=== PATIENT | male | born 1970 | race African-American/Black ===

== ENCOUNTER 2017-09-06 10:35 | Inpatient (IN) | payer OTHER ==
--- NOTE | 2017-09-06 11:30 | RAD ---
PORTABLE CHEST 1 VIEW: Date: 09/06/17 Time: 1052 hours HISTORY: Dyspnea. Lymphoma. FINDINGS: The heart size is normal. There is a right-sided Port-A-Cath with tip in the projection of the SVC. N o lobar consolidation, pneumothoraces, or pleural effusions are seen. There is fullness in the left h ilar region, likely due to lymphadenopathy. The right hemidiaphragm is elevated. IMPRESSION: No acute process. POS: OFF
[2017-09-06 11:40] LABS: INR-International Normal Ratio 1.3; Prothrombin Time 16.6 SEC (12.0-14.7)
[2017-09-06 11:41] LABS: PTT 60.8 SEC (22.9-36.1)
[2017-09-06 11:59] LABS: ALT (SGPT) 54 U/L (8-55); AST (SGOT) 449 U/L (5-34); Albumin 2.1 g/dL (3.5-5.0); Alkaline Phosphatase 669 U/L (40-150); Anion Gap 20 mmol/L (10-20); BUN (Urea Nitrogen) 73 mg/dL (8.9-20.6); Bilirubin, Total 2.5 mg/dL (0.2-1.2); Calc. Creatinine Clearance 0 mL/min (70-130); Calcium 7.4 mg/dL (7.8-10.44); Carbon Dioxide 14 mmol/L (22-29); Chloride 110 mmol/L (98-107); Estimated GFR-MDRD 34; Globulin 4.1 g/dL (2.4-3.5); Glucose 62 mg/dL (70-105); Potassium 4.9 mmol/L (3.5-5.1); Protein, Total 6.2 g/dL (6.0-8.3); Sodium 139 mmol/L (136-145)
[2017-09-06 12:01] LABS: Hemoglobin 8.9 g/dL (14.0-18.0); Mean Corpuscular Hemoglobin 25.1 pg (27.0-31.0); Mean Corpuscular Volume 83.4 fl (80.0-94.0); Mean Platelet Volume 15.1 fL (7.4-10.4); Platelet Count 26 thou/uL (130-400); RBC Distribution Width 16.7 % (11.5-14.5); Red Blood Cell (RBC) Count 3.56 mill/uL (4.70-6.10); Reflex for Review?? NO; White Blood Cell (WBC) Count 0.1 thou/uL (4.8-10.8)
[2017-09-06 12:04] LABS: Schistocytes SLIGHT = 2-5 cells (100X) (0-1/hpf); Target Cells MARKED = >16 cells (100X) (0-1/hpf)
[2017-09-06 12:05] LABS: PLT Morphology Comment Appears Decreased
--- NOTE | 2017-09-06 12:31 | CT ---
CT PULMONARY ANGIO CHEST WITH CONTRAST: Multiple axial tomograms obtained through the chest following an angio protocol with multiplanar sandra nstruction and 3D post processing. HISTORY: Dyspnea. Hypotension. Recent diagnosis of lymphoma with liver mets. COMPARISON: No comparison study. FINDINGS: Suboptimal opacification of the pulmonary arteries; however, no evidence of pulmonary embolus seen to the segmental level. Thoracic aorta is opacified and there is no evidence of aortic dissection. There is a soft tissue mass in the anterior mid left chest which is located medially along the medias tinum. It abuts the main pulmonary artery anteriorly. It measures 4.4 cm AP dimension and is consis tent with neoplasm. The lungs are otherwise clear. No infiltrate or effusion identified. Images through the upper abdomen reveal an enlarged liver with numerous low-density lesions throughou t the liver consistent with diffuse hepatic metastatic disease. Bony thorax appears unremarkable. IMPRESSION: 1. No evidence of pulmonary embolus. 2. A 4.4 cm mass in the anteromedial left lung abutting the anterior pleural surface and abutting th e mediastinum anteriorly. 3. Hepatomegaly with diffuse low-density lesion throughout the liver consistent with diffuse metasta sis. POS: [facility]
[2017-09-06] MEDS ORDERED: Piperacillin/Tazobactam 3.375 GM in Sodium Chloride 0.9% 100 ML IVPB ONE (12:45)
[2017-09-06 14:05] VITALS: BMI 26.1
[2017-09-06] MEDS ORDERED: Sodium Chloride 0.9% 1,000 ML IV SCH (14:45)
[2017-09-06] MEDS ORDERED: Ondansetron HCl/PF 4 MG/2 ML Vial IVP PRN (14:54)
[2017-09-06] MEDS ORDERED: Ondansetron ODT 4 MG TAB PO PRN (14:54)
[2017-09-06] MEDS ORDERED: Prevnar 13-Val Conj/PF 0.5 ML SYRINGE IM ONE (15:00)
[2017-09-06] MEDS: Sodium Chloride 0.9% 1,000 ML IV SCH ×2 (15:44→22:05)
[2017-09-06 15:59] LABS: Lactic Acid 5.3 mmol/L (0.5-2.2)
[2017-09-06] MEDS ORDERED: ISOVUE-370 76%-LOCM 1 ML ONE (16:05)
[2017-09-06] MEDS: Cefepime 2 GM, Syringe 2.5 ML in Sterile Water 10 ML SLOW IVP SCH (16:35)
[2017-09-06] MEDS ORDERED: Ketorolac Tromethamine 30 MG/ML VIAL IVP SCH (17:45)
--- NOTE | 2017-09-06 17:53 | HP ---
DATE OF ADMISSION: 09/06/2017 TIME OF SERVICE: 14:00. CHIEF COMPLAINT: Hypertension. HISTORY OF PRESENT ILLNESS: Mr. Tierney is a 47-year-old male who is an [facility] [place] who was sent to initially [facility] for evaluation of l ow blood pressure. The patient has a history of what he says was a lymphoma with a mass adjacent to the heart and massively enlarged liver and spleen with metastasis who underwent his first round of ch emotherapy at [facility] about 2 weeks ago. He has had decreased intake and increased belly swelling. He has had early satiety. He has had subj ective fevers or chills. No diarrhea. Still passing gas. He has had decreased p.o. intake and really does take fluids due to fullness in the belly. He was taken to the outside Emergency Department and was found to have systolic blood pressure in the 70s. He was initially given IV fluids starting Levophed and resuscitated with some saline. He subs equently called [facility] to accept him as transfer. He had no beds available, so he was sent from [facility] to [place]. Upon arrival here, he has remained in the systolic 80s and 90s. He has had a total of 4 liters in [facility] emergency department and is being admitted to the hospital for further workup. The patient does have a history of hypertension, hyperlipidemia, and GERD. He is on multiple blood p ressure medicines include amlodipine, metoprolol, and hydrochlorothiazide which has been continued to take despite decreased p.o. intake. Workup in the outside ER and confirmed here showed him to have acute kidney injury with a BUN of 73, creatinine 2, he had a metabolic acidosis with bicarbonate of 14, he has had increased liver function as expected. He has got pancytopenia secondary to his chemo. Lactic acid level here was 6.4. The patient was seen and examined on arrival to the ICU setting, he complained of abdominal pain. No nausea or vomiting, but does not have any appetite. He admitted to fevers and occasional chills, bu t no rigors. No diarrhea, constipation, no GI bleeding. PAST MEDICAL HISTORY: 1. Hypertension, essential. 2. Hyperlipidemia. 3. GERD. 4. Chronic abdominal pain secondary to cancer. 5. Lymphoma with multiple mets to the liver. 6. Anxiety. PAST SURGICAL HISTORY: Includes Port-A-Cath placement to the right chest. HOME MEDICATIONS: 1. Amlodipine 10 mg daily. 2. Bisacodyl 5 mg p.o. p.r.n. constipation. 3. Clonazepam 0.5 mg p.o. daily. 4. HCTZ 25 mg daily. 5. Ibuprofen 400 mg q.6 hours p.r.n. 6. Metoprolol 50 mg p.o. b.i.d. 7. MS Contin 30 mg p.o. b.i.d. 8. Omeprazole 20 mg daily. 9. 25 mg p.o. b.i.d. ALLERGIES: INHIBITOR causes lip and throat swelling. FAMILY HISTORY: Negative for clotting or bleeding disorder. No immune dysfunction. Hypertension, d iabetes, and heart problems runs in the family. SOCIAL HISTORY: Negative habits x3. Does have history of smoking crack cocaine in the past. He is currently incarcerated [facility] the [facility] in [place]. He is not asking why. REVIEW OF SYSTEMS: A 10-point review of systems was performed, negative for all systems except as st ated per HPI. PHYSICAL EXAMINATION: VITAL SIGNS: Temperature current is 98.6, pulse 102, blood pressure is 102/71, respiratory rate 22, satting 96% on 2 liters nasal cannula. GENERAL: He is awake. He is alert. He is oriented x3. He is cachectic looking with a full abdomen . He appears to be in no acute distress, but looks like he does appear well. HEENT: Normocephalic, atraumatic. Pupils are equal, round, reactive bilaterally. Mucous membranes are moist. No visible lesions. No thrush. NECK: Supple. He has no lymphadenopathy, no JVD, no thyromegaly. Carotids upstroke without bruits. LUNGS: Clear to auscultation bilaterally. No wheezes, no rales or rhonchi. CARDIOVASCULAR: Tachycardic, irregular. Normal S1 and S2. There are no appreciated murmurs. ABDOMEN: Distended and tense. It is diffusely tender mildly. There is no rebound, rigidity, or gua rding. He has got distant hypoactive bowel sounds in all 4 quadrants. There was no shifting dullnes s. EXTREMITIES: No cyanosis or clubbing. Trace pedal edema. He has had a 2+ dorsalis pedis and analog design engineer ior tibial pulses. SKIN: Warm, moist and well well-perfused. He has no other rash or lesions. He is nonjaundiced. He has very mild icterus. NEUROLOGIC: Cranial nerves II-XII grossly intact. No focal deficits. 4/5 strength in all 4 extremi ties. He has got normal speech pattern. MUSCULOSKELETAL: Normal to inspection. Large joints are normal to inspection. No inflammation and no palpable effusions. LABORATORY DATA: Here sodium 139, potassium 4.9, chloride 110, bicarbonate 14, BUN 73, creatinine 2. 06, and glucose 62. Calcium was 7.4. Liver function, alkaline phosphatase 69, AST of 400, ALT of 54 , total bilirubin 2.5, total protein 6.2 and albumin 2.1. CBC showed white count of 0.1, differentia l not possible. Hemoglobin is 8.9, hematocrit 29.7, platelet count 26,000. Lactic acid was 6.4. PT was 16.6, INR 1.3. RADIOGRAPHIC STUDIES: Chest x-ray showed no acute cardiopulmonary disease. We got CT angiogram, [facility] showed no evidence of pulmonary embolism, 4.4 cm anteromedial mass adjacent to the lung and heart. He has a massively enlarged liver and spleen, liver is chock full of multiple metastatic lesions. ASSESSMENT AND PLAN: 1. Hypertension: The patient is persistently hypotensive. I do believe he is both dehydrated and h as an additive effect of medications with decreased excretion from his acute kidney injury. I will h old all of his blood pressure medicines. He has finished his fourth liter of IV fluids here, we will start him on 200 mL per hour normal saline. Watch his creatinine very closely. 2. Acute kidney injury; multifactorial. The patient has been taking ibuprofen for his abdominal gerson n, has been taking amlodipine, hydrochlorothiazide and metoprolol despite severely decreased p.o. int loulou. I think he is dehydrated from lack of p.o. intake and iatrogenic use of his diuretics. We will hold his medicines and rehydrate, should turn around fairly quickly. 3. Lymphoma, metastatic. The patient is on the chemotherapy at [facility]. The last dose was arou nd 2 weeks ago. 4. Neutropenia: The patient has a white count of 0.1 with an absolute neutrophil count less than 50 0. He has no overt signs of infection. No fevers here, but has complained of fever symptoms. We wi ll start him on cefepime 2 grams q.24 for his potential neutropenic fever and will monitor his temper ature very closely. 5. Abdominal pain: Continue home medications and IV medicines as needed.
[2017-09-06] MEDS ORDERED: Piperacillin/Tazobactam 3.375 GM in Sodium Chloride 0.9% 100 ML IVPB SCH (18:00)
[2017-09-06] MEDS: Pantoprazole 40 MG VIAL IVP SCH (20:36)
[2017-09-06] MEDS ORDERED: Morphine ER 15 MG TAB PO SCH (21:00)
[2017-09-06] MEDS ORDERED: Cefepime 2 GM in Sodium Chloride 0.9% 100 ML IVPB SCH (21:00)
[2017-09-07 00:41] LABS: Actual Bicarbonate (HCO3a) 8.9 mEq/L (22-26); Base Excess (BEa) -19.4 mEq/L (0 (+/-) 2.5); CO2 Tension 30.5 mmHg (35.0-45.0); Hematocrit-ABG 27.4 % (42.0-52.0); Hemoglobin (Hb) 8.2 g/dL (14.0-18.0); pH, Arterial 7.09 (7.35-7.45)
[2017-09-07 00:42] LABS: ALV-art Gradient 540.875 (0-20); Calcium, Ionized 0.9 mmol/L (1.12-1.30); Puncture Site RRA
[2017-09-07] MEDS ORDERED: Sodium Bicarb 50 MEQ/50 ML Abboject 8.4% SYRINGE IVP SCH ×2 (01:00→02:00)
[2017-09-07] MEDS ORDERED: Sedation Protocol FS SCH (01:24)
[2017-09-07] MEDS ORDERED: Propofol 1,000 MG/100 ML VIAL IV PRN (01:27)
[2017-09-07] MEDS ORDERED: Lorazepam 2 MG/ML VIAL SLOW IVP PRN (01:27)
[2017-09-07] MEDS ORDERED: Morphine 2 MG/ML SYRINGE SLOW IVP PRN (01:27)
[2017-09-07] MEDS ORDERED: DISCONTINUE PREVIOUS NARCOTIC PAIN MEDICATIONS AND BENZODIAZEPINES FS SCH (01:27)
[2017-09-07] MEDS ORDERED: Dextrose 5% in Water 1,000 ML IV SCH (01:30)
[2017-09-07] MEDS ORDERED: Sodium Bicarbonate 150 MEQ in Dextrose 5% in Water 1,000 ML IV SCH ×2 (01:30)
--- NOTE | 2017-09-07 01:48 | PDOC.EVN ---
Event Note - Event Note Event Note: LUCINDA ALBERTS EVENT NOTE: 0008 immediately presented to bedside. Pt found to be in asystole, compressions were in progress. 1 round of epi was given and ROSC was obtained 5 minutes in. Pt subsequently A&O x4, but persistent respiratory distress. ABG obtained after code showed severe metabolic acidosis pH 7.09, pCO2 of 30 and Bicarb of 8.9. BP decreased to 70s systolic with MAP of 50s, levophed subsequently started and when MAP > 65 was obtained RSI was performed secondary to pending respiratory failure. RSI Procedure: Indication: Respiratory failure Procedure Money Room Teller: Theo Ayala DO Assisting Money Room Teller: Sheyla Vasques MD Attending Physician: Blanca James MD in attendance Consent: Consent was obtained from the pt prior to procedure. PROCEDURE SUMMARY: I wore a surgical mask and gloves throughout the procedure. The pt was placed on continuous cardiac monitoring including continuous pulse oximetry. The pt was pre-oxygenated with BVM with and pre-intubation oxygen saturation of 98% was obtained. Rapid sequence intubation was conducted. The patient received 25mg etomidate for induction and 80mg succinylcholine for adequate paralysis. Cricoid pressure was maintained from time induction agent was given to time of cuff balloon inflation. Using a glidescope and a size 7.5 endotracheal tube with stylet the patient was intubated on the first attempt. The stylet was removed and the cuff balloon was inflated. Appropriate endotracheal tube position was confirmed by direct visualization of the vocal cord passage, fogging of the tube, CO2 colometric indicator and symmetric breath sounds. The tube was secured at 28 cm at the lips. Post intubation x-ray showed slight intubation of rt main stem bronchus and tube was withdrawn 2 cm to 26 cm at the lips. Confirmation x-ray is pending at this time. <Theo Ayala - Last Filed: 09/07/17 01:27> - Event Note Event Note: I arrived with the residents with chest compressions in progress. Pt had received 1 dose of epinephrine in addition to the chest compressons and was found at the pulse check to have pulse with ROSC. Rescue breathing continued and pt quickly recovered and was A&O x4 but with tachypnea and SOB. Accucheck was 43 received 1 amp D50 and ABG was obtained which showed severe metabolic acidosis. Pt was also noted to be hypotensive and levophed was started. After improvement in BP, pt was medicated and intubated on first attempt. Tube placement was confirmed. CXR showed tube at alena and slightly into right main stem. Tube withdrawn 2 cm. and resecured. <Blanca James - Last Filed: 09/07/17 11:27>
[2017-09-07 01:50] LABS: CO2 Tension 27.6 mmHg (35.0-45.0); O2 Tension (PaO2) 153.5 mmHg (80.0-100.0); pH, Arterial 7.17 (7.35-7.45)
[2017-09-07 01:51] LABS: Actual Bicarbonate (HCO3a) 9.8 mEq/L (22-26); Base Excess (BEa) -17.2 mEq/L (0 (+/-) 2.5); Calcium, Ionized 0.9 mmol/L (1.12-1.30); Hematocrit-ABG 25.9 % (42.0-52.0); Hemoglobin (Hb) 7.9 g/dL (14.0-18.0); Puncture Site LBR
[2017-09-07] MEDS: fentaNYL Citrate/PF 2,000 MCG in Sodium Chloride 0.9% 60 ML IV SCH ×2 (01:55→14:43)
[2017-09-07] MEDS: Sodium Bicarbonate 150 MEQ in Dextrose 5% in Water 1,000 ML IV SCH ×8 (02:01→20:08)
[2017-09-07] MEDS: Norepinephrine 8 MG in Sodium Chloride 0.9% 250 ML 250 ML IVPB PRN ×5 (02:03→20:06)
[2017-09-07] MEDS: Sodium Chloride 0.9% 1,000 ML IV SCH (02:04)
--- NOTE | 2017-09-07 02:29 | PDOC.EVN ---
Event Note - Event Note Event Note: Pt seen earlier during Code Blue and reassessed later. Currently on ventilator , not responding. PRN Levophed drip for hypotension.
--- NOTE | 2017-09-07 03:33 | PRG ---
DATE OF SERVICE: 09/07/2017 SUBJECTIVE: Mr. Tierney continues to have a metabolic acidosis. His pH is 7.17 after he was intubated and hyperventilated. He has significant hypoxemia, which would normally be concerned for pulmonary e mboli given his unremarkable radiograph and lung gutierrez on chest CT, but CT angiogram ruled out pulmo nary embolus earlier. He has been started on a bicarbonate drip and was given 2 more amps of bicarbonate. Prognosis is jude te guarded and after reviewing his CT and how much tumor burden there probably is in his liver, I jason lly do not see how how he can survive this. Critical care time was 1 hour and 15 minutes.
[2017-09-07] MEDS: Cefepime 2 GM, Syringe 2.5 ML in Sterile Water 10 ML SLOW IVP SCH ×2 (04:07→16:30)
[2017-09-07 05:30] LABS: ALT (SGPT) 55 U/L (8-55); AST (SGOT) 509 U/L (5-34); Albumin 1.8 g/dL (3.5-5.0); Alkaline Phosphatase 532 U/L (40-150); Anion Gap 23 mmol/L (10-20); BUN (Urea Nitrogen) 77 mg/dL (8.9-20.6); Bilirubin, Total 2.9 mg/dL (0.2-1.2); Calc. Creatinine Clearance 44 mL/min (70-130); Calcium 6.2 mg/dL (7.8-10.44); Carbon Dioxide 14 mmol/L (22-29); Chloride 110 mmol/L (98-107); Estimated GFR-MDRD 36; Globulin 3.5 g/dL (2.4-3.5); Glucose 107 mg/dL (70-105); Magnesium 1.9 mg/dL (1.6-2.6); Potassium 4.8 mmol/L (3.5-5.1); Protein, Total 5.3 g/dL (6.0-8.3); Sodium 142 mmol/L (136-145)
[2017-09-07 05:49] LABS: White Blood Cell (WBC) Count 0.9 thou/uL (4.8-10.8)
--- NOTE | 2017-09-07 05:50 | CON ---
DATE OF CONSULTATION: 09/07/2017 Mr. Tierney is a 47-year-old male. He was transferred here from [place] for hypotension. Apparently, he received chemotherapy for a lymphoma recently at [facility]. They had no beds. I was consulted at 12:35 for a code that occurred in the ICU. I was asked whether or not the patient needed to be intubated after developing pulseless electrical activity. When I arrived, the residents were intubating Mr. Tierney. PAST MEDICAL HISTORY: Obtained from the admitting notes. He reportedly has a history of hypertension, lymphoma with liver involvement, reflux disease, lipid disorder, hypertension, and MediPort placement. MEDICATIONS: He has been on amlodipine, clonazepam, hydrochlorothiazide, ibuprofen, metoprolol, MS Contin, omeprazole. ALLERGIES: He has a history of SERENITY INHIBITOR intolerance. FAMILY HISTORY: history of hypertension, diabetes in the family. SOCIAL HISTORY: He is a nonsmoker, nondrinker. REVIEW OF SYSTEMS: Unobtainable. PHYSICAL EXAMINATION: VITAL SIGNS: His blood pressure is in the 90s, is in sinus rhythm with a rate of 120, respiratory rate is now 30 per mechanical ventilation. HEENT: Sclerae are anicteric. NECK: Supple. LUNGS: Remarkable for equal breath sounds. HEART: Regular rhythm. He has no rub. ABDOMEN: Significantly distended. EXTREMITIES: Without clubbing, cyanosis, or edema. LABORATORY AND X-RAY FINDINGS: Sodium 139, potassium 4.9, chloride 110, bicarbonate 14 at 11:24 this morning, BUN 73, creatinine 2.06. Bilirubin is 2.5 , AST is 449, ALT 54, alkaline phosphatase 669, albumin is 2.1. White count 100 , hemoglobin 8.9, platelets 26,000. Post-code blood gas shows pH 7.09, CO2 of 30, pO2 of 134. This was before intubation. CT of his chest has been reviewed by me. He has a mass adjacent to his heart. I do not see a large pericardial effusion. He has a massive liver with an apparent suggestive of diffuse metastatic disease. IMPRESSION: 1. Neutropenic sepsis. 2. Metastatic lymphoma with extensive liver involvement. I suppose some of his metabolic acidosis could be secondary to hepatic necrosis as a result of his chemo. His prognosis is dismal. Blood gas will be done in 15-20 minutes. Critical care time 1 hr 15 min. [facility]
[2017-09-07 05:54] LABS: Hemoglobin 7.9 g/dL (14.0-18.0); Mean Corpuscular HGB CONC 30.7 g/dL (32.0-36.0); Mean Corpuscular Hemoglobin 24.7 pg (27.0-31.0); Mean Corpuscular Volume 80.5 fl (80.0-94.0); Mean Platelet Volume 16.1 fL (7.4-10.4); Platelet Count 15 thou/uL (130-400); RBC Distribution Width 16.9 % (11.5-14.5); Red Blood Cell (RBC) Count 3.21 mill/uL (4.70-6.10)
[2017-09-07 06:08] LABS: Anisocytosis SLIGHT = 6-15 cells (100X) (0-5/hpf); Lymphocytes 100 % (21-51); MDiff Complete? YES; PLT Morphology Comment Appears Decreased; Target Cells MODERATE= 6-15 cells (100X) (0-1/hpf)
--- NOTE | 2017-09-07 08:01 | RAD ---
PORTABLE CHEST SUPINE CHEST: History: Intubation. Code blue. FINDINGS/IMPRESSION: ET tube has been placed. The tip projects into the right mainstem bronchus and should be retracted. A Mediport catheter is unchanged. An NG tube has been placed and tip overlies the left abdomen. There is patchy atelectasis and/or infiltrate in the right lung base. POS: [facility]
[2017-09-07] MEDS: Pantoprazole 40 MG VIAL IVP SCH ×2 (08:13→20:25)
[2017-09-07] MEDS ORDERED: Sodium Chloride 0.9% 1,000 ML IV SCH (08:15)
[2017-09-07] MEDS ORDERED: Albumin 25% 25 GM/100 ML BOT IVPB SCH ×2 (08:15→16:00)
[2017-09-07 08:16] LABS: pH, Arterial 7.33 (7.35-7.45)
[2017-09-07 08:17] LABS: Actual Bicarbonate (HCO3a) 11.6 mEq/L (22-26); Base Excess (BEa) -12.8 mEq/L (0 (+/-) 2.5); CO2 Tension 22.3 mmHg (35.0-45.0); Calcium, Ionized 0.8 mmol/L (1.12-1.30); Hematocrit-ABG 27.8 % (42.0-52.0); O2 Tension (PaO2) 99.5 mmHg (80.0-100.0)
[2017-09-07 08:18] LABS: ALV-art Gradient 297.425 (0-20); Puncture Site RR
[2017-09-07] MEDS: Vasopressin 40 UNIT, Admixture Fee 1 EACH in Sodium Chloride 0.9% 100 ML IV SCH ×2 (09:08→23:41)
[2017-09-07] MEDS ORDERED: Succinylcholine Chloride 200 MG/10 ML VIAL ONE (13:03)
[2017-09-07] MEDS ORDERED: Dextrose 50% Abboject 50 ML SYRINGE ONE (13:11)
[2017-09-07] MEDS ORDERED: Sodium Bicarb 50 MEQ/50 ML Abboject 8.4% SYRINGE ONE (13:11)
[2017-09-07] MEDS ORDERED: EPINEPHrine 1 MG/10 ML Abboject SYRINGE ONE (13:11)
[2017-09-07] MEDS ORDERED: Atropine Sulfate 1 mg/10 ml Syringe ONE (13:11)
--- NOTE | 2017-09-07 17:21 | OP ---
09/07/2017 PROCEDURE: Central line placement. ARM REST BUILDER: Dr. David Syed. INDICATION: Poor peripheral access. Right groin was prepped with Betadine. Femoral vein was easily cannulated, first passed with an introducer needle. Wire was passed followed by a vein dilator after a small incision was made. Triple lumen catheter was sewn in place x2. Good blood return was obtained from all 3 ports. Sterile dressing was applied. [facility]
--- NOTE | 2017-09-07 17:55 | PRG ---
DATE OF SERVICE: 09/07/2017 SUBJECTIVE: Mr. Tierney is still on pressors. His acid base status is improving. PHYSICAL EXAMINATION: VITAL SIGNS: Blood pressures just recently over 100, most part he has been in the 90s, heart rate in 106, is in sinus rhythm, respiratory rate is 30. LUNGS: Remarkable for equal breath sounds. HEART: Regular rhythm. S1 and S2 are normal. ABDOMEN: Soft and nontender. EXTREMITIES: Without asymmetry. LABORATORY DATA: Blood cultures are growing, one culture is growing gram negative and the other cult ure is E. coli. White count is 900, hemoglobin 7.9, platelets 15,000. Sodium 143, potassium 4.8, chloride 110, bicar bonate 14, BUN 77, creatinine 2.36, glucose 107, and AST 509. ALT 55, alkaline phosphatase 532. Alb umin is 1.8. IMPRESSION: 1. Sepsis with neutropenia after chemotherapy for advanced lymphoma. 2. Status post cardiac arrest with no signs of an anoxic injury. 3. Poor peripheral access. PLAN: Placement of central line. Continue pressors. We will add salt poor albumin. Continue broad antimicrobial therapy. His antibiotics may be simplified. Critical care time 40 minutes.
[2017-09-07] MEDS: Norepinephrine 16 MG in Sodium Chloride 0.9% 250 ML 250 ML IVPB PRN (23:43)
[2017-09-08] MEDS: Albumin 25% 25 GM/100 ML BOT IVPB SCH (00:10)
[2017-09-08] MEDS ORDERED: Dextrose 50% Abboject 50 ML SYRINGE ONE (01:17)
[2017-09-08] MEDS: Sodium Bicarbonate 150 MEQ in Dextrose 5% in Water 1,000 ML IV SCH ×6 (01:29→12:13)
[2017-09-08] MEDS ORDERED: Dextrose 50% Abboject 50 ML SYRINGE IVP PRN (01:42)
[2017-09-08] MEDS: Cefepime 2 GM, Syringe 2.5 ML in Sterile Water 10 ML SLOW IVP SCH ×2 (03:08→18:07)
[2017-09-08] MEDS: Norepinephrine 16 MG in Sodium Chloride 0.9% 250 ML 250 ML IVPB PRN ×5 (04:29→21:59)
[2017-09-08 06:14] LABS: Hemoglobin 6.4 g/dL (14.0-18.0); Mean Corpuscular HGB CONC 31.1 g/dL (32.0-36.0); Mean Corpuscular Hemoglobin 24.9 pg (27.0-31.0); Mean Corpuscular Volume 80.2 fl (80.0-94.0); Mean Platelet Volume 15.8 fL (7.4-10.4); Platelet Count 11 thou/uL (130-400); Red Blood Cell (RBC) Count 2.56 mill/uL (4.70-6.10); White Blood Cell (WBC) Count 0.6 thou/uL (4.8-10.8)
[2017-09-08 06:28] LABS: Burr Cells SLIGHT = 2-5 cells (100X) (0-1/hpf); Lymphocytes 92 % (21-51); MDiff Complete? YES; Monocytes 4 % (0-10); Neutrophil 4 % (42-75); PLT Morphology Comment Appears Decreased; Target Cells MODERATE= 6-15 cells (100X) (0-1/hpf)
[2017-09-08 06:33] LABS: Anion Gap 38 mmol/L (10-20); BUN (Urea Nitrogen) 87 mg/dL (8.9-20.6); Calc. Creatinine Clearance 30 mL/min (70-130); Calcium 5.3 mg/dL (7.8-10.44); Carbon Dioxide 9 mmol/L (22-29); Chloride 103 mmol/L (98-107); Estimated GFR-MDRD 21; Glucose 88 mg/dL (70-105); Potassium 5.9 mmol/L (3.5-5.1); Sodium 144 mmol/L (136-145)
[2017-09-08 08:18] LABS: pH, Arterial 7.17 (7.35-7.45)
[2017-09-08 08:19] LABS: Actual Bicarbonate (HCO3a) 7.7 mEq/L (22-26); Base Excess (BEa) -19.1 mEq/L (0 (+/-) 2.5); CO2 Tension 21.5 mmHg (35.0-45.0); O2 Tension (PaO2) 92.3 mmHg (80.0-100.0)
[2017-09-08 08:22] LABS: Hematocrit-ABG 20.8 % (42.0-52.0)
[2017-09-08 08:23] LABS: Calcium, Ionized 0.7 mmol/L (1.12-1.30); Puncture Site RRA
[2017-09-08 08:24] LABS: ALV-art Gradient 166.025 (0-20)
--- NOTE | 2017-09-08 08:24 | RAD ---
PORTABLE CHEST: History: Ventilated patient. CCU follow up. Dyspnea. Comparison: 09-07-17 FINDINGS: ET tube is now above the alena. NG tube and central line are unchanged. Lungs show better aeration t annamaria. The basilar atelectasis in the right base yesterday is less pronounced today. No evidence of va scular congestion. IMPRESSION: Improvement in the appearance of the chest when compared to yesterday. POS: [facility]
--- NOTE | 2017-09-08 08:50 | PDOC.PN ---
- Subjective Encounter Start Date: 09/07/17 Encounter Start Time: 09:25 -: non-verbal pt with PEA and code blue overnight, intubated but currently off sedation. awake, alert, trying to communicate. NO F/c, no N/V/D/C. pt with positive BCX for E coli. on cefepime ROS not obtainable - Objective Resuscitation Status: Resuscitation Status FULL:Full Resuscitation MAR Reviewed: Yes Vital Signs & Weight: Vital Signs (12 hours) Temp Pulse Resp BP 09/08/17 08:00 89 30 H 09/08/17 07:00 98.5 F 09/08/17 06:00 30 H 09/08/17 04:00 98 F 30 H 09/08/17 02:44 101 H 83/38 L 09/08/17 02:00 30 H 09/08/17 00:00 99 F 30 H 09/07/17 22:00 30 H 09/07/17 21:53 112 H 81/47 L Weight Admit Weight 182 lb Weight 193 lb 9.054 oz Most Recent Monitor Data Heart Rate from ECG 89 NIBP 75/33 NIBP BP-Mean 43 Respiration from ECG 20 SpO2 99 I&O: 09/07/17 09/08/17 09/09/17 06:59 06:59 06:59 Intake Total 3608 7750.0 Output Total 1985 764 0 Balance 1623 6986.0 0 Result Diagrams: 09/08/17 06:06 09/08/17 06:06 Additional Labs: Accuchecks 09/08/17 09/08/17 09/08/17 08:30 05:53 02:18 POC Glucose 64 L 113 H 89 09/08/17 09/08/17 01:33 01:17 POC Glucose 97 41 L* Radiology Reviewed by me: Yes EKG Reviewed by me: Yes Phys Exam - Physical Examination Constitutional: NAD HEENT: PERRLA, moist MMs, sclera anicteric, oral pharynx no lesions oral ETT Neck: no nodes, no JVD, supple, full ROM Respiratory: no wheezing, no rales, no rhonchi, clear to auscultation bilateral Cardiovascular: RRR, no significant murmur, no rub Gastrointestinal: soft, positive bowel sounds mild tenderness, full and distended Musculoskeletal: no edema, pulses present Neurological: non-focal, normal sensation, moves all 4 limbs Lymphatic: no nodes Psychiatric: normal affect Skin: no rash, normal turgor, cap refill <2 seconds Dx/Plan (1) PEA (Pulseless electrical activity) Code(s): I46.9 - CARDIAC ARREST, CAUSE UNSPECIFIED Status: Resolved Comment : likely due to metabolic effect of acidemia (2) Lymphoma involving lung Code(s): C85.99 - NON-HODGKIN LYMPHOMA, UNSP, EXTRANODAL AND SOLID ORGAN SITES Status: Acute Comment: chemo first dose, last received, about 2 weeks ago (3) Lymphoma involving liver Code(s): GCT9825 - Status: Acute (4) Acute hypoxemic respiratory failure Code(s): J96.01 - ACUTE RESPIRATORY FAILURE WITH HYPOXIA Status: Acute Comment: intubated overnight, awake, likely will be extubated today (5) Lactic acidosis Code(s): E87.2 - ACIDOSIS Status: Acute Comment: ? tumor lysis plus renal failure induced? (6) Metabolic acidosis Code(s): E87.2 - ACIDOSIS Status: Acute (7) E coli bacteremia Code(s): R78.81 - BACTEREMIA Status: Acute Comment: E coli on Cefepime. Pt neutropenic, but not febile. (8) Septic shock due to Escherichia coli Code(s): A41.51 - SEPSIS DUE TO ESCHERICHIA COLI [E. COLI]; R65.21 - SEVERE SEPSIS WITH SEPTIC SHOCK Status: Acute (9) JAKI (acute kidney injury) Code(s): N17.9 - ACUTE KIDNEY FAILURE, UNSPECIFIED Status: Acute Comment: suspect ATN, due to decreased po and continued HTZ. IV fluids. (10) HTN (hypertension) Code(s): I10 - ESSENTIAL (PRIMARY) HYPERTENSION Status: Chronic Qualifiers: Hypertension type: essential hypertension Qualified Code(s): I10 - Essential (primary) hypertension Comment: low now, on pressors, adding in vasopressin, will hold meds (11) Pancytopenia Code(s): D61.818 - OTHER PANCYTOPENIA Status: Acute Comment: due to chemo. not febrile, definitely neutropenic, E coli in blood cltures likly relaed. n cefepime - Plan * .
[2017-09-08] MEDS: Pantoprazole 40 MG VIAL IVP SCH ×2 (10:27→20:21)
[2017-09-08] MEDS ORDERED: Sodium Bicarb 50 MEQ/50 ML Abboject 8.4% SYRINGE IVP SCH (10:30)
[2017-09-08] MEDS ORDERED: Heparin 10,000 UNITS/ 10 ML VIAL ONE (12:00)
[2017-09-08] MEDS: SODIUM BICARBONATE IV SCH ×2 (13:40→22:00)
[2017-09-08] MEDS: ADMIXTURE FEE IV SCH ×2 (13:40→22:00)
[2017-09-08] MEDS: WATER IV SCH ×2 (13:40→22:00)
[2017-09-08] MEDS: [UNRECOGNIZED DRUG - OTHER] IV SCH ×2 (13:40→22:00)
[2017-09-08] MEDS: DEXTROSE IV SCH ×2 (13:40→22:00)
--- NOTE | 2017-09-08 13:57 | ULT ---
RENAL ULTRASOUND: HISTORY: Metastatic cancer. Renal failure. Liver mets. Ascites. COMPARISON: None. TECHNIQUE: Utilizing a multihertz transducer, sonographic imaging of the kidneys is performed in the longitudina l and transverse plane. FINDINGS: Right kidney: Normal cortical echotexture. No hydronephrosis. The right kidney measures 5.4 x 12.1 x 5.0 cm. Left kidney: Normal cortical echotexture. No hydronephrosis. The left kidney measures 5.6 x 12.3 x 5.7 cm. A small amount of ascites is noted. The urinary bladder is decompressed due to Regalado catheterization. IMPRESSION: No hydronephrosis. POS: [facility]
[2017-09-08 14:08] LABS: Blood, Urine Trace (Negative); Clarity TURBID (Clear); Protein, Urine (Dipstick) 100 mg/dL (Neg-Trace)
[2017-09-08 14:10] LABS: Bacteria/HPF None Seen HPF (None Seen); RBC/HPF 0-3 HPF (0-3)
[2017-09-08 14:13] LABS: Pathc Cast-AUWi Flag 74.73 (0-2.49); Yeast-AUWi Flag 89.1 (0-25.0)
--- NOTE | 2017-09-08 14:17 | CON ---
DATE OF CONSULTATION: 09/08/2017 HISTORY OF PRESENT ILLNESS: Mr. Tierney is a 47-year-old black male, apparently an inmate from [facility], was admitted for septic shock. He has also diagnosis of lymphoma and current gets chemotherapy a [facility] in [place]. Renal function has been worsening; hence, the renal consultation. REVIEW OF SYSTEMS: Not obtainable since the patient is intubated and unresponsive. PAST MEDICAL HISTORY: Hypertension, hyperlipidemia, lymphoma with mets to the liver, history of GERD . PAST SURGICAL HISTORY: Status post Port-A-Cath placement to the right chest. Status post lymph node biopsy? CURRENT MEDICATIONS: Patient is on cefepime 2 grams IV q.12h., salt-poor albumin IV q.6h., fentanyl drip, morphine sulfate 2 mg IV q.2h. as needed, Levophed drip, Zofran p.r.n., sodium bicarbonate drip , isotonic bicarbonate drip at 125 mL per hour. Vasopressin drip. SOCIAL HISTORY: The patient is currently an inmate. Currently no alcohol or drug use. The patient is incarcerated at [facility] and has a history of smoking crack cocaine. ALLERGIES: SERENITY INHIBITORS. TRAUMA: Unknown. HOSPITALIZATIONS: Please see past medical history. IMMUNIZATIONS: Up to date. FAMILY HISTORY: No family history of ESRD. PHYSICAL EXAMINATION: VITAL SIGNS: Blood pressure is noted at 94/43 with a heart rate of 82, respiratory rate 30, pulse ox 92%. GENERAL: The patient is sedated, intubated on ventilator support. SKIN: Adequate turgor. HEENT: He has pale conjunctivae, anicteric sclerae. NECK: No neck mass, no carotid bruits, no JVD. CHEST: No deformities. LUNGS: Clear. Decreased breath sounds. HEART: Normal sinus rhythm. No murmur, no gallops, no rubs. ABDOMEN: Globular, soft, nontender. No masses. EXTREMITIES: No edema, no deformities. LABORATORY: 09/08/2017 - White count 0.6, hemoglobin 6.4, sodium 144, potassium 5.9, chloride 103, c arbon dioxide 9, BUN 87, creatinine 3.71, calcium 5.3. ASSESSMENT AND PLAN: 1. Acute kidney injury - this patient most likely has ischemic acute tubular necrosis from his under lying sepsis. We are awaiting for the urine chemistries and urinalysis. Due to the multiple biochem ical abnormalities my bias is to proceed with dialysis with this patient. Please note he is severely acidemic as well as hyperkalemic. He is making much decreased urine output. My plan is to do a 2-h our hemodialysis with this patient and then 3 hours tomorrow. A surgical consult has been done for p lacement of femoral dialysis catheter. 2. Anemia p.m. blood transfusion. Overall, prognosis remains poor with this patient. I agree with current management.
[2017-09-08 14:29] LABS: Creatinine, Urine 141.23 mg/dL (63-166); Sodium, Urine Less than 20 mmol/L (Not Available)
[2017-09-08 14:35] LABS: Bilirubin Large (Negative); Glucose, Urine (Dipstick) Unable to Interpret mg/dL (Negative); Nitrite Unable to Interpret (Negative); Specific Gravity, Urine 1.044 (1.002-1.036)
[2017-09-08 14:38] LABS: Leukocyte Negative (Negative)
[2017-09-08 14:40] LABS: Crystals/HPF 2+ AMORPH URATES HPF (Negative); Hyaline Casts/LPF 0-3 HYALINE CAST LPF (0-3 Hyaline); Other Casts/LPF None Seen LPF (0-3 Hyaline)
[2017-09-08 14:41] LABS: Renal Epithelial None Seen HPF (0-3); Transitional Epithelial NONE SEEN HPF (0-3); Yeast-All Forms None Seen HPF (None Seen)
[2017-09-08 14:43] LABS: INR-International Normal Ratio 2.8; Prothrombin Time 31.1 SEC (12.0-14.7)
[2017-09-08 14:44] LABS: PTT 111.8 SEC (22.9-36.1)
[2017-09-08] MEDS: Vasopressin 40 UNIT, Admixture Fee 1 EACH in Sodium Chloride 0.9% 100 ML IV SCH (14:45)
--- NOTE | 2017-09-08 15:25 | PDOC.PN ---
- Subjective Encounter Start Date: 09/08/17 Encounter Start Time: 10:00 -: non-verbal Pt has continued to decline, has remained extremely acidemia. pH with hyperventilation and Bicarb drip last 24 hours still under 7.2. Pt with increasing Cr, obtunded, increased LFTs. hes on 60mcg of Levophed and BP still border line. Long discussion with Dr Syed and i believe that this patient has severe multiorgan failure and any further care is futile - Objective Resuscitation Status: Resuscitation Status FULL:Full Resuscitation MAR Reviewed: Yes Vital Signs & Weight: Vital Signs (12 hours) Temp Pulse Resp 09/08/17 14:00 30 H 09/08/17 13:11 82 09/08/17 13:00 98.6 F 09/08/17 12:00 30 H 09/08/17 11:00 90 09/08/17 10:00 30 H 09/08/17 08:00 89 30 H 09/08/17 07:00 98.5 F 09/08/17 06:00 30 H 09/08/17 04:00 98 F 30 H Weight Admit Weight 182 lb Weight 193 lb 9.054 oz Most Recent Monitor Data Heart Rate from ECG 70 NIBP 78/34 NIBP BP-Mean 52 Respiration from ECG 30 SpO2 98 I&O: 09/07/17 09/08/17 09/09/17 06:59 06:59 06:59 Intake Total 3608 7750.0 700 Output Total 1985 764 0 Balance 1623 6986.0 700 Result Diagrams: 09/08/17 06:06 09/08/17 06:06 Additional Labs: Accuchecks 09/08/17 09/08/17 09/08/17 12:50 12:19 08:30 POC Glucose 142 H Less than 35 L* 64 L 09/08/17 09/08/17 09/08/17 05:53 02:18 01:33 POC Glucose 113 H 89 97 09/08/17 01:17 POC Glucose 41 L* Radiology Reviewed by me: Yes EKG Reviewed by me: Yes Phys Exam - Physical Examination obtunded, unresponsive, off sedation, eyes rolling orally intubated, looks icteric Neck: no nodes, no JVD, supple Respiratory: no wheezing, no rales, no rhonchi Cardiovascular: RRR, no rub tense, distended, and full Musculoskeletal: edema present Skin: no rash, normal turgor, cap refill <2 seconds Dx/Plan (1) PEA (Pulseless electrical activity) Code(s): I46.9 - CARDIAC ARREST, CAUSE UNSPECIFIED Status: Resolved Comment : likely due to metabolic effect of acidemia (2) Lymphoma involving lung Code(s): C85.99 - NON-HODGKIN LYMPHOMA, UNSP, EXTRANODAL AND SOLID ORGAN SITES Status: Acute Comment: chemo first dose, last received, about 2 weeks ago (3) Lymphoma involving liver Code(s): QVT5016 - Status: Acute (4) Acute hypoxemic respiratory failure Code(s): J96.01 - ACUTE RESPIRATORY FAILURE WITH HYPOXIA Status: Acute Comment: intubated overnight, awake yesterday, obtunded today, extremely poor prognosis (5) Lactic acidosis Code(s): E87.2 - ACIDOSIS Status: Acute Comment: ? tumor lysis plus renal failure induced? (6) Metabolic acidosis Code(s): E87.2 - ACIDOSIS Status: Acute (7) E coli bacteremia Code(s): R78.81 - BACTEREMIA Status: Acute Comment: E coli on Cefepime. Pt neutropenic, but not febile. (8) Septic shock due to Escherichia coli Code(s): A41.51 - SEPSIS DUE TO ESCHERICHIA COLI [E. COLI]; R65.21 - SEVERE SEPSIS WITH SEPTIC SHOCK Status: Acute (9) JAKI (acute kidney injury) Code(s): N17.9 - ACUTE KIDNEY FAILURE, UNSPECIFIED Status: Acute Comment: suspect ATN, due to decreased po and continued HTZ. IV fluids. (10) HTN (hypertension) Code(s): I10 - ESSENTIAL (PRIMARY) HYPERTENSION Status: Chronic Qualifiers: Hypertension type: essential hypertension Qualified Code(s): I10 - Essential (primary) hypertension Comment: low now, on pressors, adding in vasopressin, will hold meds (11) Pancytopenia Code(s): D61.818 - OTHER PANCYTOPENIA Status: Acute Comment: due to chemo. not febrile, definitely neutropenic, E coli in blood cltures likly relaed. n cefepime - Plan * . unable to reach family. Pt is terminally ill and is in septic shock, bacteremia , and in multisytem organ failure. I believe that further care is futile. HD discussed earlier, but again i think will not improve patients condition.
[2017-09-08 16:47] LABS: Hep B Surf Ag Non-Reactive S/CO (NonReactive)
--- NOTE | 2017-09-08 16:58 | PRG ---
DATE OF SERVICE: 09/08/2017 SUBJECTIVE: Mr. Tierney has not improved overnight. He is still pressor dependent. OBJECTIVE: GENERAL: He will awaken if he is not sedated. VITAL SIGNS: His heart rates in the 60s, blood pressure is in the 70s, respiratory rates 30. LUNGS: Coarse and clear anteriorly. HEART: Regular rhythm. ABDOMEN: Soft. EXTREMITIES: Nontender. He has no cyanosis. LABORATORY DATA: Chest radiograph shows improvement of the atelectasis at the right base. Lab work shows a white count of 600, hemoglobin 6.4, platelets 11,000. Sodium 144, potassium 5.9, chloride 103, bicarbonate 9, BUN 87, creatinine 3.71. PH 7.17, CO2 21, pO2 of 92. IMPRESSION: 1. Respiratory failure, fatigue related to sepsis. 2. Escherichia coli bacteremia, most likely of gastrointestinal origin given his neutropenia. 3. Status post chemotherapy for liver, extensive liver disease with lymphoma. 4. Probable hepatic necrosis with chemotherapy/tumor lysis. 5. Acute renal failure. 6. Metabolic acidosis that is multifactorial. The only thing we have to offer at this point is dial ysis to see if it corrects his acid base status. I have informed the warden that feel it is likely t hat he will pass away within 1-2 days, but we are trying everything we can. I have also discussed wi th the warden any other physicians caring for Mr. Tierney that a code will be futile in this setting. E ssentially running a drip code with bicarbonate, pressors and IV fluids at this time and chest compre ssions will not add anything to this. I discussed with Dr. Davalos. We both agree that a code would be futile. There is no family per my discussion with the warden, so we will go ahead and make him a [id number] patient, but continue all of other aggressive care measures. Again, it is highly unlikely that he will survive this illness. Critical care time 40 minutes.
--- NOTE | 2017-09-08 17:45 | OP ---
PREOPERATIVE DIAGNOSES: Shock on high dose pressors, end-stage liver failure, prisoner, respiratory failure on the ventilator, DNR status. PROCEDURE PERFORMED: Left femoral vein Trialysis catheter. SURGEON: Dr. Garg. ANESTHESIA: 1% Xylocaine. PROCEDURE IN DETAIL: The patient is at bedside. The patient has a previous history of right femoral vein triple lumen catheter. On the left side, area was prepared with chloraprep, draped in the rout ine fashion. Local anesthetic infiltrated into skin and subcutaneous tissue. Trocar catheter cannul ated what seemed to be the femoral vein, but actually it was the femoral artery. Two dilators were p laced and removed and then it was appreciated his arterial pressure held to hemostatic after instrume ntation was removed and skin closed with 3-0 nylon [id number] suture. A femoral vein was cannul ated with trocar catheter. J-wire threaded. Trocar catheter removed. Smaller and medium sized dila tors were placed over the J-wire into the femoral vein and removed. Seldinger technique used to plac e a Trialysis catheter, secured with 3-0 nylon suture. Sterile dressing applied. Each port aspirate d blood and flushed with saline solution. The patient tolerated the procedure well.
[2017-09-09] MEDS ORDERED: Albumin 5% 0 ML ONE (00:08)
[2017-09-09] MEDS ORDERED: Albumin 25% 100 ML ONE (00:09)
[2017-09-09] MEDS: Albumin 25% 25 GM/100 ML BOT IVPB SCH (00:17)
[2017-09-09] MEDS: Norepinephrine 16 MG in Sodium Chloride 0.9% 250 ML 250 ML IVPB PRN ×5 (02:17→20:29)
[2017-09-09] MEDS: Cefepime 2 GM, Syringe 2.5 ML in Sterile Water 10 ML SLOW IVP SCH ×2 (04:54→15:51)
[2017-09-09] MEDS: Vasopressin 40 UNIT, Admixture Fee 1 EACH in Sodium Chloride 0.9% 100 ML IV SCH ×2 (06:37→20:28)
[2017-09-09 06:42] LABS: Hemoglobin 5.9 g/dL (14.0-18.0); Platelet Count 21 thou/uL (130-400)
[2017-09-09] MEDS: [UNRECOGNIZED DRUG - OTHER] IV SCH (06:51)
[2017-09-09] MEDS: WATER IV SCH (06:51)
[2017-09-09] MEDS: DEXTROSE IV SCH (06:51)
[2017-09-09] MEDS: ADMIXTURE FEE IV SCH (06:51)
[2017-09-09] MEDS: SODIUM BICARBONATE IV SCH (06:51)
[2017-09-09 07:00] LABS: BUN (Urea Nitrogen) 64 mg/dL (8.9-20.6); Calc. Creatinine Clearance 33 mL/min (70-130); Calcium 5.5 mg/dL (7.8-10.44); Carbon Dioxide Less than 8 mmol/L (22-29); Chloride 99 mmol/L (98-107); Estimated GFR-MDRD 22; Glucose 240 mg/dL (70-105); Potassium 6.1 mmol/L (3.5-5.1); Sodium 145 mmol/L (136-145)
[2017-09-09 07:22] LABS: pH, Arterial 6.96 (7.35-7.45)
[2017-09-09 07:23] LABS: Actual Bicarbonate (HCO3a) 5.1 mEq/L (22-26); Base Excess (BEa) -24.4 mEq/L (0 (+/-) 2.5); CO2 Tension 22.8 mmHg (35.0-45.0); Hematocrit-ABG 20.5 % (42.0-52.0); Hemoglobin (Hb) 5.6 g/dL (14.0-18.0); O2 Tension (PaO2) 43.8 mmHg (80.0-100.0)
[2017-09-09 07:24] LABS: Calcium, Ionized 0.7 mmol/L (1.12-1.30); Puncture Site RRA
--- NOTE | 2017-09-09 08:33 | RAD ---
PORTABLE CHEST: COMPARISON: Prior day's study. HISTORY: Respiratory distress. FINDINGS: Endotracheal and NG tubes remain in satisfactory position. Right-sided MediPort catheter is again no darnell to be in place. There are worsening parenchymal changes in the right mid and lower lung zones. This could indicate asymmetric edema pattern developing or be related to infiltrate. The left-sided mass along the left heart border is again demonstrated. IMPRESSION: Cardiomegaly with increased right-sided lung changes which are slightly more perihilar in distributio n. I am not certain whether this represents asymmetric edema appearance or represents some infiltrat e. Endotracheal and NG tubes remain in satisfactory position. Left-sided chest mass is unchanged. POS: OFF
[2017-09-09 08:42] LABS: Mean Corpuscular HGB CONC 29.2 g/dL (32.0-36.0); Mean Corpuscular Hemoglobin 25.5 pg (27.0-31.0); Mean Corpuscular Volume 87.2 fl (80.0-94.0); Mean Platelet Volume 11.4 fL (7.4-10.4); RBC Distribution Width 17.4 % (11.5-14.5); Red Blood Cell (RBC) Count 2.31 mill/uL (4.70-6.10)
[2017-09-09 08:46] LABS: Band 16 % (5-11); Lymphocytes 36 % (21-51); Monocytes 28 % (0-10); Neutrophil 20 % (42-75); Polychromasia SLIGHT = 2-3 cells (100X) (0-2/hpf)
[2017-09-09 08:47] LABS: Acanthocytes SLIGHT = 1-5 cells (100X) (None Seen); Bite Cells SLIGHT = 2-5 cells (100X) (0-1/hpf); Burr Cells SLIGHT = 2-5 cells (100X) (0-1/hpf); Hypochromia SLIGHT = 6-15 cells (100X) (0-5/hpf); Schistocytes SLIGHT = 2-5 cells (100X) (0-1/hpf)
--- NOTE | 2017-09-09 09:15 | PRG ---
DATE OF SERVICE: 09/09/2017 SUBJECTIVE: Mr. Tierney is a 47-year-old black male with recent diagnosis of lymphoma, status post chem otherapy, admitted for sepsis. We were seeing the patient for his acute kidney injury. He received a 2-hour hemodialysis yesterday. However, due to his worsening clinical status, dialysis will be dis continued. The patient remains unimproved and continues to worsen. PHYSICAL EXAMINATION: VITAL SIGNS: Blood pressure is 186/34, heart rate 66, respiratory rate 30, O2 sat 91. GENERAL: Unresponsive, intubated on ventilator support. SKIN: Adequate turgor. HEENT: He has pale conjunctivae, anicteric sclerae. NECK: No neck mass, no carotid bruits, no JVD. LUNGS: Decreased breath sounds. HEART: Normal sinus rhythm. ABDOMEN: Globular, soft. EXTREMITIES: No edema. MEDICATIONS: 09/09/2017 - Reviewed. LABORATORY: 09/09/2017 - White count is 1, hemoglobin 5.9. Sodium 145, potassium 6.1, chloride 99, carbon dioxide less than 8, BUN 64, creatinine 3.61, calcium 5.5. ASSESSMENT AND PLAN: Acute kidney injury - unimproved. Dialysis, x-ray measurements will be placed on hold due to the patient's poor medical condition. He remains unimproved. He continues to be sept ic. We will resume dialysis only if needed. For the moment, we will hold dialysis. Please recall if lissette pelayo
[2017-09-09] MEDS: Pantoprazole 40 MG VIAL IVP SCH ×2 (09:55→20:28)
--- NOTE | 2017-09-09 10:28 | PRG ---
DATE OF SERVICE: 09/09/2017 Mr. Tierney is no better even with dialysis yesterday. PHYSICAL EXAMINATION: VITAL SIGNS: Blood pressure 88/34, heart rate 64, respiratory rate 30. LUNGS: Clear. CARDIOVASCULAR: Regular rhythm. ABDOMEN: Soft. He is sedated for comfort. LABORATORY: White count is 1000, hemoglobin 5.9, platelets 21,000. Sodium 145, potassium 6.1, chloride 99, bicarbonate less than 8, BUN 64, creatinine 3.61. In spite of a bicarbonate drip and hyperventilation as well as multiple amps of bicarbonate administe red this admission today's pH is 6.96, CO2 22, pO2 43. This is after dialysis yesterday. At this point, I feel there is no way he will survive. We will continue with current care. He will not undergo CPR resuscitation. If he passes I would expect he would pass away today. I have informe d the officers from the [facility] to relay this to the [place]. Critical care time was 30 minutes.
[2017-09-09] MEDS: Sodium Bicarbonate 150 MEQ in Dextrose 5% in Water 1,000 ML IV SCH ×4 (13:27→20:28)
[2017-09-09 22:08] VITALS: BP 91/42
[2017-09-09 22:09] VITALS: TEMP 95
--- NOTE | 2017-09-09 22:49 | PDOC.PN ---
- Subjective Encounter Start Date: 09/09/17 Encounter Start Time: 11:55 - Objective Resuscitation Status: Resuscitation Status DNR:Do Not Resuscitate Vital Signs & Weight: Vital Signs (12 hours) Temp Pulse Resp BP 09/09/17 22:07 50 L 91/42 L 09/09/17 22:00 30 H 09/09/17 20:00 95 F L 50 L 30 H 09/09/17 18:33 55 L 94/40 L 09/09/17 18:00 30 H 09/09/17 16:00 30 H 09/09/17 15:50 57 L 09/09/17 14:00 30 H 09/09/17 13:27 60 09/09/17 12:00 30 H Weight Admit Weight 182 lb Weight 207 lb 3.752 oz Most Recent Monitor Data Heart Rate from ECG 51 NIBP 91/42 NIBP BP-Mean 49 Respiration from ECG 30 SpO2 100 I&O: 09/08/17 09/09/17 09/10/17 06:59 06:59 06:59 Intake Total 7750.0 6159 2537.3 Output Total 764 300 202 Balance 6986.0 5859 2335.3 Result Diagrams: 09/09/17 06:27 09/09/17 06:27 Additional Labs: Accuchecks 09/09/17 09/09/17 09/09/17 18:30 11:50 06:14 POC Glucose 243 H 351 H 288 H 09/09/17 00:21 POC Glucose 162 H Dx/Plan - Plan * .
== END 2017-09-10 07:15 | disposition expired | DRG 871 ==
LOC: ERS 10:35 → CCU 12:34 → EEVIPCON 12:34
PROVIDERS: ADMIT Internal Medicine Infectious Disease; ATTEND Internal Medicine Infectious Disease
PROC: 5A1945Z Respiratory Ventilation, 24-96 Consecutive Hours (ICD-10-PCS; principal; 2017-09-07)
PROC: 0BH17EZ Insertion of Endotracheal Airway into Trachea, Via Natural or Artificial Opening (ICD-10-PCS; 2017-09-07)
PROC: 3E043XZ Introduction of Vasopressor into Central Vein, Percutaneous Approach (ICD-10-PCS; 2017-09-07)
PROC: 02HV33Z Insertion of Infusion Device into Superior Vena Cava, Percutaneous Approach (ICD-10-PCS; 2017-09-07)
PROC: 06HY33Z Insertion of Infusion Device into Lower Vein, Percutaneous Approach (ICD-10-PCS; 2017-09-08)
PROC: 5A1D70Z Performance of Urinary Filtration, Intermittent, Less than 6 Hours Per Day (ICD-10-PCS; 2017-09-08)
DX: A41.51 Sepsis due to Escherichia coli [E. coli] (principal); J96.01 Acute respiratory failure with hypoxia; R65.21 Severe sepsis with septic shock; D61.810 Antineoplastic chemotherapy induced pancytopenia; N17.9 Acute kidney failure, unspecified; C78.7 Secondary malignant neoplasm of liver and intrahepatic bile duct; C85.90 Non-Hodgkin lymphoma, unspecified, unspecified site; E87.2 Acidosis; I10 Essential (primary) hypertension; E78.5 Hyperlipidemia, unspecified; K21.9 Gastro-esophageal reflux disease without esophagitis; F41.9 Anxiety disorder, unspecified; I46.9 Cardiac arrest, cause unspecified; Z66 Do not resuscitate; D70.8 Other neutropenia
CPT/HCPCS: 36415; 36416; 36430; 71045; 71275; 76770; 80048; 80053; 81001; 82570; 82805; 83605; 83735; 84300; 85007; 85025; 85027; 85610; 85730; 86850; 86900; 86901; 87040; 87077; 87149; 87186; 87340; 90935; 92950; 94002; 94003; 96361; 96365; 99292; A4216; A4217; C1752; C9113; G0257; J0171; J0330; J0461; J0692; J1642; J1644; J1885; J2060; J2270; J2405; J2543; J2704; J3010; J3370; J7050; J7070; P9016; P9035; P9045; P9047